=== PATIENT | female | born 1980 | race Asian ===

== ENCOUNTER 2020-04-30 17:30 | Emergency (ER) | payer BC, SELFPAY ==
--- NOTE | ~2020-04-30 | CT_ITS ---
EXAMINATION: CT brain wo con DATE: 04/30/2020 20:20 INDICATION: Headache. Transient alteration of awareness. TECHNIQUE: Computed tomography (CT) of the head was performed without intravenous contrast. The mA wa s adjusted according to patient size. Iterative reconstruction technique was employed. The dose-lengt h product was 605.33 mGy-cm. COMPARISON: None FINDINGS: There is no intracranial hemorrhage, acute infarction, or abnormal intracranial mass lesion . The ventricles are normal in size. The paranasal sinuses are clear. The mastoid air cells are jamshid l. IMPRESSION: 1. Normal brain. Reviewed, dictated and finalized at location A. CTOR SPEECH AND HEARING IMPRESSION: 1. Normal brain.
[2020-04-30 17:45] VITALS: BP 127/77; PULSE 93; RESP 16; TEMP 35.8; O2SAT 100
[2020-04-30 19:49] LABS: Basophils Absolute Auto 0.1 K/mm3 (0.0-0.1); Basophils Percent Auto 0.9 % (0.2-1.2); Eosinophils Absolute Auto 0.6 K/mm3 (0-0.3); Eosinophils Percent Auto 6.3 % (0-4.4); Hematocrit 45.2 % (37.0-47.0); Hemoglobin 15.4 g/dL (12.0-15.0); Immature Granulocyte Absolute 0.04 K/mm3 (0.00-0.031); Immature Granulocyte Percent A 0.4 % (0-0.5); Lymphocytes Absolute Auto 3.47 K/mm3 (0.9-3.2); Lymphocytes Percent Auto 34.4 % (18.3-44.2); Mean Corpuscular HGB Conc 34.1 g/dl (32-36); Mean Corpuscular Hemoglobin 31.2 pg (26-34); Mean Corpuscular Volume 91.5 fl (80-100); Mean Platelet Volume 9.1 fl (7.4-10.4); Monocytes Absolute Auto 0.7 K/mm3 (0.1-0.6); Monocytes Percent Auto 7.2 % (2.6-8.5); Neutrophils Absolute Auto 5.1 K/mm3 (1.3-6.7); Neutrophils Percent Auto 50.8 % (45.5-73.1); Platelet Count Result 288 k/mm3 (150-375); Red Blood Count 4.94 M/mm3 (4.2-5.4); White Blood Count 10.1 K/mm3 (4.5-10.0)
[2020-04-30 19:52] LABS: Add Urine Microscopic? YES; Appearance Urine Clear (Clear); Bilirubin Urine Negative (Negative); Blood Urine Negative (Negative); Color Urine Yellow (Yellow); Glucose Urine UA Negative (Negative); Ketones Urine Negative (Negative); Leukocyte Esterase Ur Negative LEU/UL (Negative); Mucus Urine Rare /lpf; Nitrate Urine Negative (Negative); Protein Urine Negative (Negative); RBC Urine 0-2 /hpf (0-2); Specific Grav Ur 1.017 (1.001-1.035); Squamous Epithelial Cell Urine Rare /hpf (Few); WBC Urine 0-3 /hpf
[2020-04-30 20:00] LABS: Ethanol < 10 mg/dL (<10)
[2020-04-30 20:01] LABS: Alanine Aminotransferase 20 U/L (4-35); Albumin Level 4.9 g/dL (3.5-5.1); Alkaline Phosphatase 59 U/L (38-126); Anion Gap 9 mmol/L (8-16); Aspartate Amino Transferase 26 U/L (14-36); Bilirubin,Total 0.3 mg/dL (0.2-1.3); Blood Urea Nitrogen 12 mg/dL (7-17); Calcium 9.5 mg/dL (8.4-10.2); Carbon Dioxide 32 mmol/L (22-30); Chloride 103 mmol/L (98-107); Estimated CRCL calculation 74 ml/min; Estimated Glomerular Filt Rate > 60; Glucose 79 mg/dL (65-105); Potassium 4.1 mmol/L (3.4-5.0); Sodium 144 mmol/L (137-145)
[2020-04-30 20:05] LABS: Amphetamine Screen Urine Negative (Negative); Barbiturate Screen Urine Negative (Negative); Benzodiazepines Screen Urine Negative (Negative); Cannabinoid Screen Urine Negative (Negative); Cocaine Screen Urine Negative (Negative); Methadone Screen Urine Negative (Negative); Opiate Screen Urine Negative (Negative); Phencyclidine Screen Urine Negative (Negative)
[2020-04-30] MEDS: ACETAMINOPHEN 500 MG TABLET 1000 MG PO (20:20)
[2020-04-30] MEDS: KETOROLAC (*BKC) 60 MG/2 ML VIAL IM (20:21)
--- NOTE | 2020-04-30 20:56 | ED.GENADULT ---
HPI - General Adult General Chief complaint: Unspecified Stated complaint: having out of body experiences Time Seen by Provider: 04/30/20 18:45 Source: patient Mode of arrival: ambulatory Limitations: no limitations History of Present Illness HPI narrative: This is a 39 year old female that presents to the ER for transient alteration in awareness. Reports over the last couple of weeks she has been having odd sensations. Reports she has episodes that last briefly (seconds) where she feels out of her body. Reports she feels like she is in a tunnel. Reports nausea during the episodes. Reports they have been happening daily the last couple of days which concerned her and prompted her to be seen. Reports a headache today as well and that she has been having headaches which she contributed to being dehydrated possibly. Denies fever, vision changes, vomiting, dizziness, chest pain, shortness of breath, numbness, or weakness. Related Data Home Medications Medication Instructions Recorded Confirmed dextroamphetamine-amphetamine 10 mg PO BID 04/30/20 [Adderall] Allergies Allergy/AdvReac Type Severity Reaction Status Date / Time No Known Allergies Allergy Verified 04/30/20 18:09 Review of Systems Review of Systems: Narrative: CONSTITUTIONAL: Denies fever EYES: Denies visual changes CARDIOVASCULAR: Denies chest pain RESPIRATORY: Denies dyspnea. GASTROINTESTINAL: Denies vomiting NEUROLOGIC: Reports headache. Denies numbness, or weakness. All systems reviewed & are unremarkable except as noted in HPI and below PMFSH Past Medical History Medical History (Updated 04/30/20 @ 21:09 by Kaylan Parikh PA-C) History of ADHD History of SCC (squamous cell carcinoma) of skin Social History Social History (Updated 04/30/20 @ 21:01 by Kaylan Parikh PA-C) Substance use: never Gender identity (if verbalized by the patient): Female Exam Narrative: Exam Narrative: GENERAL: Well-appearing, well-nourished, and in no acute distress. HEAD: Normocephalic, atraumatic. EYES: PERRLA and EOMI. ENT: Nares clear, no rhinorrhea or epistaxis. Mucous membranes moist. Oropharynx without tonsillar hypertrophy exudate or other lesions. Bilateral TMs pearly maldonado non-bulging NECK: Supple. No adenopathy or masses. No carotid bruits or JVD CHEST: Clear to auscultation. No respiratory distress. No wheezes rales or rhonchi HEART: Regular rate and rhythm. No murmur heard. Normal peripheral pulses. EXTREMITIES: Normal range of motion. No edema. Strength equal in bilateral upper extremities (5/5) SKIN: Warm, dry, no rash. NEURO: No focal deficits. Alert and oriented x3. Cranial nerves II through XII grossly intact PSYCH: Normal mood and affect Course Vital Signs Vital signs: Vital Signs Temperature 96.5 F L 04/30/20 17:45 Pulse Rate 93 04/30/20 17:45 Respiratory Rate 16 04/30/20 17:45 Blood Pressure 127/77 04/30/20 17:45 Pulse Oximetry 100 04/30/20 17:45 Temperature 96.5 F L 04/30/20 17:45 Pulse Rate 93 04/30/20 17:45 Respiratory Rate 16 04/30/20 17:45 Blood Pressure 127/77 04/30/20 17:45 Pulse Oximetry 100 04/30/20 17:45 Medical Decision Making MDM Narrative Medical decision making narrative: Patient presents to the emergency department for headaches and reports of transient alteration in awareness. She is afebrile and nontoxic-appearing. She is neurologically intact. CBC and metabolic panel without concerning findings. CT scan of the brain is normal. UA without evidence of infection. Bedside test is negative. Patient updated on case findings. She is stable and felt appropriate for further outpatient evaluation. She is to follow up with primary care doctor. She was given warnings to return to the ER Vital Signs Vital Signs: Vital Signs Temperature 96.5 F L 04/30/20 17:45 Pulse Rate 93 04/30/20 17:45 Respiratory Rate 16 04/30/20 17:45 Blood Pressure 127/77 04/30/20 17:45 P
[2020-04-30 21:33] VITALS: BP 136/88; PULSE 84; RESP 18; O2SAT 98
== END 2020-04-30 21:34 | disposition home or self-care (01) ==
PROVIDERS: Physician Assistant; Emergency Provider Emergency Medicine
DX: R40.4 Transient alteration of awareness (principal); R51.9 Headache, unspecified; F90.9 Attention-deficit hyperactivity disorder, unspecified type; Z85.828 Personal history of other malignant neoplasm of skin
CPT/HCPCS: 36415; 70450; 80053; 80307; 81001; 81025; 85025; 96372; 99284; A9270; J1885

== ENCOUNTER 2021-01-11 13:42 | Observation (INO) | payer BC, SELFPAY ==
--- NOTE | ~2021-01-11 | CT_ITS ---
EXAMINATION: CT abdomen pelvis w con EXAM DATE: 01/11/2021 14:57 INDICATION: Generalized abdominal pain. TECHNIQUE: Spiral CT of the abdomen and pelvis was performed following intravenous injection of 100 m L Omnipaque 350. Axial, coronal and sagittal images of the abdomen and pelvis were reviewed. The do se-length product (DLP) for this examination was 300.98 mGy-cm. The exposure was tailored according to patient size (auto mA exposure control), and iterative reconstruction (ASIR) was used as additiona l dose reduction technique. There is no prior study for comparison. FINDINGS: The liver, spleen, adrenal glands and pancreas are unremarkable. Gallbladder is unremarkab le. No biliary obstruction. Portal and splenic veins are patent. Kidneys enhance symmetrically. T here is no hydronephrosis. The uterus is unremarkable. The bladder is unremarkable. There is no retroperitoneal or pelvic lymphadenopathy. The appendix is dilated, with edematous origin and fluid-filled body and tail, measuring up to 10 mm in diameter (see axial images 122-135). Mild inflammation at the cecal base. No perforation. The sto mach and small bowel are unremarkable. There is expected amount of colonic stool. No free intraper itoneal gas. The heart is normal in size. There are no pericardial or pleural effusions. The lung bases are unremarkable. The bones are unremarkable. IMPRESSION: 1. Acute uncomplicated appendicitis. I discussed appendicitis with Maximino Bartholomew PA-C at 01/11/2021 15:04 CDT. 1. Reviewed, dictated and finalized at location .
[2021-01-11 13:48] VITALS: BP 112/81; PULSE 90; RESP 18; TEMP 36.7; O2SAT 99
[2021-01-11 14:07] LABS: Basophils Absolute Auto 0.1 K/mm3 (0.0-0.1); Basophils Percent Auto 0.6 % (0.2-1.2); Eosinophils Absolute Auto 0.8 K/mm3 (0-0.3); Eosinophils Percent Auto 6.4 % (0-4.4); Hematocrit 45.3 % (37.0-47.0); Immature Granulocyte Absolute 0.03 K/mm3 (0.00-0.031); Immature Granulocyte Percent A 0.2 % (0-0.5); Lymphocytes Absolute Auto 2.58 K/mm3 (0.9-3.2); Lymphocytes Percent Auto 20.8 % (18.3-44.2); Mean Corpuscular HGB Conc 33.1 g/dl (32-36); Mean Corpuscular Hemoglobin 30.7 pg (26-34); Mean Corpuscular Volume 92.6 fl (80-100); Mean Platelet Volume 9.6 fl (7.4-10.4); Monocytes Absolute Auto 1.1 K/mm3 (0.1-0.6); Monocytes Percent Auto 8.7 % (2.6-8.5); Neutrophils Absolute Auto 7.9 K/mm3 (1.3-6.7); Neutrophils Percent Auto 63.3 % (45.5-73.1); Platelet Count Result 258 k/mm3 (150-375); Red Blood Count 4.89 M/mm3 (4.2-5.4); White Blood Count 12.4 K/mm3 (4.5-10.0)
[2021-01-11 14:15] LABS: Add Urine Microscopic? YES; Appearance Urine Clear (Clear); Bilirubin Urine Negative (Negative); Blood Urine Negative (Negative); Color Urine Yellow (Yellow); Glucose Urine UA Negative (Negative); Ketones Urine Negative (Negative); Leukocyte Esterase Ur Negative LEU/UL (Negative); Mucus Urine Moderate /lpf; Nitrate Urine Negative (Negative); Protein Urine 1+ mg/dL (Negative); RBC Urine 0-2 /hpf (0-2); Specific Grav Ur 1.025 (1.001-1.035); Squamous Epithelial Cell Urine Occasional /hpf (Few); WBC Urine 0-3 /hpf
[2021-01-11] MEDS: SODIUM CHLORIDE 0.9% IV 1,000 ML 999 ML IV CONT (14:18)
[2021-01-11] MEDS: PANTOPRAZOLE SODIUM IV 40 MG VIAL IV PUSH (14:19)
[2021-01-11 14:22] LABS: Alanine Aminotransferase 21 U/L (4-35); Albumin Level 4.4 g/dL (3.5-5.1); Alkaline Phosphatase 51 U/L (38-126); Anion Gap 6 mmol/L (8-16); Aspartate Amino Transferase 27 U/L (14-36); Bilirubin,Total 0.6 mg/dL (0.2-1.3); Blood Urea Nitrogen 8 mg/dL (7-17); Calcium 9.2 mg/dL (8.4-10.2); Carbon Dioxide 28 mmol/L (22-30); Chloride 105 mmol/L (98-107); Estimated CRCL calculation 72 ml/min; Estimated Glomerular Filt Rate > 60; Glucose 82 mg/dL (65-110); Lipase 117 U/L (23-300); Sodium 139 mmol/L (137-145)
--- NOTE | 2021-01-11 15:32 | ED.GENADULT ---
HPI - General Adult General Chief complaint: Abdominal Pain Stated complaint: Abd Pain Time Seen by Provider: 01/11/21 13:53 Source: patient, family and RN notes reviewed Mode of arrival: ambulatory Limitations: no limitations History of Present Illness HPI narrative: Patient is a 40-year-old female who presents to emergency department for evaluation of abdominal pain that began yesterday patient notes she began to have generalized belly pain in the upper abdomen with nausea attempted some [id number] medications with no improvement denies similar occurrence in the past on arrival appears uncomfortable but not distressed. Related Data Home Medications Medication Instructions Recorded Confirmed dextroamphetamine-amphetamine 10 mg PO BID 01/11/21 [Adderall] Allergies Allergy/AdvReac Type Severity Reaction Status Date / Time No Known Allergies Allergy Verified 01/11/21 13:58 Review of Systems Review of Systems: All systems reviewed & are unremarkable except as noted in HPI and below PMFSH Past Medical History Medical History ADHD (attention deficit hyperactivity disorder) Frequent headaches History of SCC (squamous cell carcinoma) of skin Surgical History Surgical History No history of previous surgery Social History Social History Social History: . Lives with , 2 children and her [id number]. She works full-time as a construction carpenters helper. Moved here from [place], [place] 2019. Smoking status: Never smoker Substance use: never Gender identity (if verbalized by the patient): Female Exam Narrative: Exam Narrative: GENERAL: Ill-appearing, well-nourished, and in no acute distress. HEAD: Normocephalic, atraumatic. EYES: PERRLA and EOMI. ENT: Nares clear, no rhinorrhea or epistaxis. Mucous membranes moist. CHEST: Clear to auscultation. No respiratory distress. No wheezes rales or rhonchi HEART: Regular rate and rhythm. No murmur heard. Normal peripheral pulses. ABDOMEN: Soft, tenderness in the upper quadrants of the abdomen, nondistended, normal active bowel sounds. EXTREMITIES: Normal range of motion. No edema. SKIN: Warm, dry, no rash. NEURO: No focal deficits. Alert and oriented x3. PSYCH: Normal mood and affect. Course Course Emergency Course: Patient was evaluated for abdominal pain of 1 day duration found to have acute appendicitis discussion was made with general surgery has agreed to accept the patient would like Zosyn to be given for antibiotics with plan surgery for tomorrow Consultations Consultation #1: Spoke with general surgeon Dr. Sepulveda who is agreed to accept the patient, would like patient to be admitted to his service with Zosyn for antibiotics Date: 01/11/21 Time: 15:44 Vital Signs Vital signs: Vital Signs Temperature 98.1 F 01/11/21 13:48 Pulse Rate 90 01/11/21 13:48 Respiratory Rate 18 01/11/21 13:48 Blood Pressure 112/81 01/11/21 13:48 Pulse Oximetry 99 01/11/21 13:48 Temperature 98.1 F 01/11/21 13:48 Pulse Rate 90 01/11/21 13:48 Respiratory Rate 18 01/11/21 13:48 Blood Pressure 112/81 01/11/21 13:48 Pulse Oximetry 99 01/11/21 13:48 Medical Decision Making MDM Narrative Medical decision making narrative: Patient afebrile nontoxic-appearing no distress will be admitted to the hospital for planned surgery tomorrow hemodynamically stable ABCs and vital signs intact hydrated and given antibiotics in the emergency department Vital Signs Vital Signs: Vital Signs Temperature 98.1 F 01/11/21 13:48 Pulse Rate 90 01/11/21 13:48 Respiratory Rate 18 01/11/21 13:48 Blood Pressure 112/81 01/11/21 13:48 Pulse Oximetry 99 01/11/21 13:48 Temperature 98.1 F 01/11/21 13:48 Pulse Rate 90 01/11/21 13:48 Respiratory Rate
[2021-01-11 16:51] VITALS: BP 118/82; PULSE 89; RESP 18; TEMP 35.9; O2SAT 100
[2021-01-11 17:00] VITALS: BMI 25.6
--- NOTE | 2021-01-11 17:00 | PC.NURSE ---
This patient, Carine Campo, was admitted to 2 Medical Room 261-01. Patient/family oriented to hospital policies and general routines including ID bracelet, bed and alarms, visiting hours, pain management, procedures, bathroom and other care routines, personal items, smoking policy, room service/diet, and visiting hours. Information on how to activate the Rapid Response Team has been discussed. Patient/Family are encouraged to report perceived risks to care and to ask questions if they do not understand what they are told or what they should do.
--- NOTE | 2021-01-11 17:02 | PM.IMHP ---
H&P: HPI History of Present Illness Date/Time: 01/11/21 17:02 Chief Complaint: right lower quadrant abdominal pain Narrative: patient is a 40-year-old woman who yesterday started having back and upper abdominal pain. The pain was severe and persistent. She came to the emergency room today and the pain moved to the right lower quadrant. Evaluation in the emergency room showed tenderness with guarding in the right lower quadrant. [place] [address] scan showed acute appendicitis. She has been started on IV antibiotics and is admitted now for treatment. Review of Systems Review of Systems: All systems reviewed & are unremarkable except as noted in HPI and below Constitutional: Constitutional: Denies chills and Denies fever(s) Cardiovascular: Cardiovascular: Denies chest pain, Denies diaphoresis, Denies dyspnea and Denies paroxysmal nocturnal dyspnea Respiratory: Respiratory: Denies chest congestion, Denies cough and Denies dyspnea Gastrointestinal: Gastrointestinal: Reports as per HPI, Reports abdominal pain, Denies heartburn, Denies diarrhea, Reports nausea and Denies vomiting Integumentary/Breasts: Skin/Breast: Denies lesions and Denies rash PMFSH Past Medical History Medical History ADHD (attention deficit hyperactivity disorder) Frequent headaches History of SCC (squamous cell carcinoma) of skin Surgical History Surgical History No history of previous surgery Social History Social History Social History: . Lives with , 2 children and her [id number]. She works full-time as a construction stonemason. Moved here from [place], [place] 2019. Smoking status: Never smoker Substance use: never Gender identity (if verbalized by the patient): Female Meds Home Medications and Allergies Home Medications Medication Instructions Recorded Confirmed Type dextroamphetamine-amphetamine 10 mg PO BID 01/11/21 History [Adderall] Allergies Allergy/AdvReac Type Severity Reaction Status Date / Time No Known Allergies Allergy Verified 01/11/21 13:58 Vital Signs Vital Signs - 24 hr 01/11/21 13:48 01/11/21 16:51 Temperature 36.7 C 35.9 C L Pulse Rate 90 89 Respiratory Rate 18 18 Blood Pressure 112/81 118/82 Pulse Oximetry 99 100 Exam Const: General: cooperative, healthy appearing, comfortable, no acute distress, well developed, alert and awake Nutritional Appearance: well nourished Orientation/consciousness: patient oriented x3 Limitations: no limitations HENMT: Head: normocephalic and atraumatic Mouth: Yes Normal oral and palatal mucosa present Eyes: Conjunctivae: conjunctivae normal Pupils: Equal, round and reactive pupils present EOM: EOMs intact bilaterally Neck: Neck: normal visual inspection, no lymphadenopathy and nontender Resp: Effort & Inspection: normal respiratory effort Auscultation: clear to auscultation bilaterally Cardio: Rate: regular rate Rhythm: regular rhythm Heart sounds: no gallops, no murmurs and no rubs GI: Inspection: non-distended, scaphoid and no scars GI Palp: Yes Soft to palpation, Yes Tenderness to palpation present (GI) ( Right lower quadrant), Yes Guarding due to palpation present (GI), No Hepatomegaly present, No Splenomegaly present, No Hernia present and No Palpable mass present Auscultation: normal bowel sounds Skin: Lesions: no lesions Rashes: no rashes Neuro: General: no focal motor deficits and CN's II-XI intact bilaterally Cranial nerves: Yes Equal, round and reactive pupils present, Yes Bilaterally intact EOM present, Yes facial symmetry and Yes Midline tongue present Speech: normal speech Motor exam (neuro): 5/5 motor strength present throughout and Motor abnormalities not present Extrem: General: no clubbing, cyanosis
[2021-01-11] MEDS: IBUPROFEN IV 800 MG/200 ML 800 MG/200 ML BAG 400 MG IVPB (18:42)
[2021-01-11] MEDS: LACTATED RINGERS 1,000 ML 80 ML IV CONT (18:42)
[2021-01-11 22:00] VITALS: BP 111/73; PULSE 81; RESP 16; TEMP 36.2; O2SAT 99
[2021-01-11] MEDS: ENOXAPARIN 30 MG/0.3 ML SYRINGE SUB-Q (22:10)
[2021-01-11] MEDS: FAMOTIDINE 20 MG/2 ML VIAL IV PUSH (22:11)
[2021-01-11] MEDS: MORPHINE SULFATE (*CRX) 2 MG/ML INJ IV PUSH (22:12)
[2021-01-11] MEDS: ONDANSETRON INJ 4 MG/2 ML VIAL IV PUSH (22:15)
[2021-01-12] VITALS (9 sets, daily range): BP systolic 80–104; BP diastolic 45–75; PULSE 53–78; RESP 15–29; TEMP 36.1–36.6; O2SAT 97–100
[2021-01-12] MEDS: IBUPROFEN IV 800 MG/200 ML 800 MG/200 ML BAG 400 MG IVPB (01:19)
[2021-01-12 05:43] LABS: Basophils Absolute Auto 0.1 K/mm3 (0.0-0.1); Basophils Percent Auto 0.7 % (0.2-1.2); Eosinophils Absolute Auto 0.5 K/mm3 (0-0.3); Eosinophils Percent Auto 5.5 % (0-4.4); Hematocrit 35.7 % (37.0-47.0); Immature Granulocyte Absolute 0.02 K/mm3 (0.00-0.031); Immature Granulocyte Percent A 0.2 % (0-0.5); Lymphocytes Absolute Auto 2.21 K/mm3 (0.9-3.2); Lymphocytes Percent Auto 22.6 % (18.3-44.2); Mean Corpuscular HGB Conc 33.6 g/dl (32-36); Mean Corpuscular Hemoglobin 31.3 pg (26-34); Mean Corpuscular Volume 93.2 fl (80-100); Mean Platelet Volume 9.7 fl (7.4-10.4); Monocytes Absolute Auto 0.7 K/mm3 (0.1-0.6); Monocytes Percent Auto 7.3 % (2.6-8.5); Neutrophils Absolute Auto 6.2 K/mm3 (1.3-6.7); Neutrophils Percent Auto 63.7 % (45.5-73.1); Platelet Count Result 176 k/mm3 (150-375); Red Blood Count 3.83 M/mm3 (4.2-5.4); Red Cell Distribution Width 12.1 % (11.5-14.5); White Blood Count 9.8 K/mm3 (4.5-10.0)
[2021-01-12 06:00] LABS: Anion Gap 5 mmol/L (8-16); Blood Urea Nitrogen 6 mg/dL (7-17); Calcium 8.1 mg/dL (8.4-10.2); Carbon Dioxide 25 mmol/L (22-30); Chloride 106 mmol/L (98-107); Estimated CRCL calculation 72 ml/min; Estimated Glomerular Filt Rate > 60; Glucose 79 mg/dL (65-110); Potassium 3.6 mmol/L (3.4-5.0); Sodium 136 mmol/L (137-145)
--- NOTE | 2021-01-12 07:33 | PM.PNGS ---
Progress Note: A&P Assessment and Plan (1) Acute appendicitis: Code(s): K35.80 - Unspecified acute appendicitis Status: Acute Assessment and Plan: Persistent pain and discomfort. Patient prefers to go ahead with laparoscopic appendectomy this morning. I discussed briefly the procedure again. All questions were answered. She understands and agrees to go ahead. Subjective Subjective Date/Time Seen: 01/12/21 07:33 Patient reports: still having pain (Took main medicine through the night, pain about the same), no bowel movement and afebrile Review of Systems Review of Systems: All systems reviewed & are unremarkable except as noted in HPI and below Constitutional: Constitutional: Denies chills, Denies fever(s), Denies headache(s) and Denies night sweats Gastrointestinal: Gastrointestinal: Reports as per HPI, Reports abdominal pain, Denies diarrhea, Denies nausea and Denies vomiting Neurologic: Denies confusion and Denies headache(s) Exam Const: General: comfortable and no acute distress; No confusion Orientation/consciousness: patient oriented x3 and No confusion GI: Inspection: non-distended and scaphoid GI Palp: Yes Soft to palpation, Yes Tenderness to palpation present (GI) ( right lower quadrant) and Yes Guarding due to palpation present (GI) Auscultation: Hypoactive bowel sounds present Extrem: General: no calf tenderness and no edema Objective Data Vital Signs Vital Signs: Vital Signs - 24 hr 01/11/21 13:48 01/11/21 16:51 01/11/21 22:00 Temperature 36.7 C 35.9 C L 36.2 C L Pulse Rate 90 89 81 Respiratory Rate 18 18 16 Blood Pressure 112/81 118/82 111/73 Pulse Oximetry 99 100 99 01/12/21 06:00 Temperature 36.1 C L Pulse Rate 65 Respiratory Rate 16 Blood Pressure 95/59 L Pulse Oximetry 99 Intake/Output Intake/Output: Intake & Output 01/09/21 01/10/21 01/11/21 01/12/21 23:59 23:59 23:59 23:59 Intake Total 1400 450 Balance 1400 450 Meds/Results Medications: Active Medications Generic Name Dose Route Start Last Admin Trade Name Freq PRN Reason Stop Dose Admin Enoxaparin Sodium 30 mg 01/11/21 21:00 01/11/21 22:10 Enoxaparin 30 Mg/0.3 Ml Syringe SUB-Q 30 mg Q12HR IZABELLA Administration Famotidine 20 mg 01/11/21 21:00 01/11/21 22:11 Famotidine 20 Mg/2 Ml Vial IV PUSH 20 mg Q12HR IZABELLA Administration Piperacillin/Tazobactam/Dextrose 3.375 gm in 50 mls @ 100 mls/hr 01/11/21 22:00 01/12/21 06:01 Zosyn 3.375 Gm/D5w 50ml Pm IVPB Infused Q6HR IZABELLA Infusion Lactated Ringer's 1,000 mls @ 80 mls/hr 01/11/21 15:45 01/11/21 18:42 Lr - Lactated Ringers Iv IV CONT 80 mls/hr .[id number] IZABELLA Administration Ibuprofen 800 mg in 200 mls @ 400 mls/hr 01/11/21 16:59 01/12/21 01:49 Caldolor 800 Mg/200 Ml IVPB Infused Q6H PRN Infusion Pain Rated 5 or Less Morphine Sulfate 2 mg 01/11/21 16:59 01/11/21 22:12 Morphine Sulfate (*Crx) 2 Mg/Ml Inj IV PUSH 2 mg Q2H PRN Administration Pain Rated 6 or Greater Ondansetron HCl 4 mg 01/11/21 15:45 01/11/21 22:15 Ondansetron Inj 4 Mg/2 Ml Vial IV PUSH 4 mg Q4H PRN Administration Nausea Radiology Results: ITS Impressions Abdomen/Pelvis CT 01/11/21 14:59 IMPRESSION: 1. Acute uncomplicated appendicitis. I discussed appendicitis with Maximino Bartholomew PA-C at 01/11/2021 15:04 CDT. 1. Labs Labs: Laboratory Results - last 24 hr 01/11/21 01/11/21 01/11/21 13:55 13:55 13:55 WBC 12.4 H RBC 4.89 Hgb 15.0 Hct 45.3 MCV 92.6 MCH 30.7 MCHC 33.1 RDW 12.0 Plt Count 258 MPV 9.6 Immature Gran % (Auto) 0.2 Neut % (Auto) 63.3 Lymph % (Auto) 20.8 [place] % (Auto) 8.7 H Eos % (Auto) 6.4 H Baso % (Auto) 0.6 Lymph # (Auto) 2.58 [place] # (Auto) 1.1 H Eos # (Auto) 0.8 H Baso # (Auto) 0.1 Abs Immat Gran (auto) 0.03 Absolute Neuts (auto) 7.9 H Absolute Nucleated RBC 0.0 Nuc
--- NOTE | 2021-01-12 07:36 | WPDHPUPDATE1 ---
History and Physical Update Update Date/Time: 01/12/21 07:36 History and Physical has been reviewed, including an updated exam of the patient. There are NO changes in the patient's condition. Risks, benefits, and alternatives have been discussed and questions answered. Patient agrees to proceed with procedure.
--- NOTE | 2021-01-12 07:37 | WPDANESEPPF ---
Anes - Initial Pre Proc Eval Procedure: Operation Date: 01/12/21 08:00 Proposed Procedures p Laparoscopic Appendectomy - Cayetano Sepulveda MD Date/Time: 01/12/21 07:37 Surgeon: Cayetano Sepulveda MD Pre Op Diagnosis: appendicitis Patient Data Age: 40 Gender: F Height: 1.57 m Weight: 63.6 kg Last Vital Signs Temp 36.1 C L 01/12/21 06:00 Pulse 65 01/12/21 06:00 Resp 16 01/12/21 06:00 BP 95/59 L 01/12/21 06:00 Pulse Ox 99 01/12/21 06:00 Allergies Allergy/AdvReac Type Severity Reaction Status Date / Time No Known Allergies Allergy Verified 01/11/21 17:53 Home Medications Medication Instructions Recorded Confirmed Type dextroamphetamine-amphetamine 10 mg PO BID 01/11/21 01/11/21 History [Adderall] Laboratory Tests 01/11/21 01/11/21 01/11/21 13:55 13:55 13:55 WBC 12.4 K/mm3 H K/mm3 (4.5-10.0) RBC 4.89 M/mm3 M/mm3 (4.2-5.4) Hgb 15.0 g/dL g/dL (12.0-15.0) Hct 45.3 % % (37.0-47.0) MCV 92.6 fl fl (80-100) MCH 30.7 pg pg (26-34) MCHC 33.1 g/dl g/dl (32-36) RDW 12.0 % % (11.5-14.5) Plt Count 258 k/mm3 k/mm3 (150-375) MPV 9.6 fl fl (7.4-10.4) Immature Gran % (Auto) 0.2 % % (0-0.5) Neut % (Auto) 63.3 % % (45.5-73.1) Lymph % (Auto) 20.8 % % (18.3-44.2) [place] % (Auto) 8.7 % H % (2.6-8.5) Eos % (Auto) 6.4 % H % (0-4.4) Baso % (Auto) 0.6 % % (0.2-1.2) Lymph # (Auto) 2.58 K/mm3 K/mm3 (0.9-3.2) [place] # (Auto) 1.1 K/mm3 H K/mm3 (0.1-0.6) Eos # (Auto) 0.8 K/mm3 H K/mm3 (0-0.3) Baso # (Auto) 0.1 K/mm3 K/mm3 (0.0-0.1) Abs Immat Gran (auto) 0.03 K/mm3 K/mm3 (0.00-0.031) Absolute Neuts (auto) 7.9 K/mm3 H K/mm3 (1.3-6.7) Absolute Nucleated RBC 0.0 K/mm3 K/mm3 (0.0-0.012) Nucleated RBC % 0.0 % % (0.0-0.2) Sodium 139 mmol/L mmol/L (137-145) Potassium 4.0 mmol/L mmol/L (3.4-5.0) Chloride 105 mmol/L mmol/L (98-107) Carbon Dioxide 28 mmol/L mmol/L (22-30) Anion Gap 6 mmol/L L mmol/L (8-16) BUN 8 mg/dL mg/dL (7-17) Creatinine 0.70 mg/dL mg/dL (0.7-1.0) Estim Creat Clear Calc 72 ml/min ml/min Estimated GFR > 60 (59 - ) Glucose 82 mg/dL mg/dL (65-110) Calcium 9.2 mg/dL mg/dL (8.4-10.2) Total Bilirubin 0.6 mg/dL mg/dL (0.2-1.3) AST 27 U/L U/L (14-36) ALT 21 U/L U/L (4-35) Alkaline Phosphatase 51 U/L U/L (38-126) Total Protein 8.0 g/dL g/dL (6.3-8.2) Albumin 4.4 g/dL g/dL (3.5-5.1) Lipase 117 U/L U/L (23-300) Urine Color Yellow (Yellow) Urine Appearance Clear (Clear) Urine pH 6.0 (5.0-9.0) Ur Specific [place] 1.025 (1.001-1.035) Urine Protein 1+ mg/dL H mg/dL (Negative) Urine Glucose (UA) Negative mg/dL mg/dL (Negative) Urine Ketones Negative mg/dL mg/dL (Negative) Ur Blood (Man) Negative (Negative) Urine Nitrate Negative (Negative) Urine Bilirubin Negative (Negative) Urine Urobilinogen 4.0 mg/dL H mg/dL (<2.0) Leukocyte Esterase Rfl Negative NEEMA/UL NEEMA/UL (Negative) Urine RBC 0-2 /hpf /hpf (0-2) Urine WBC 0-3 /hpf /hpf Ur Squamous Epith Cells Occasional /hpf /hpf (Few) Urine Mucus Moderate /lpf H /lpf 01/12/21 01/12/21 05:01 05:02 WBC 9.8 K/mm3 K/mm3 (4.5-10.0) RBC 3.83 M/mm3 L M/mm3 (4.2-5.4) Hgb 12.0 g/dL D g/dL (12.0-15.0) Hct 35.7 % L % (37.0-47.0) MCV 93.2 fl fl (80-100) MCH 31.3 pg pg (26-34) MCHC 33.6 g/dl g/dl (32-36) RDW 12.1 % % (11.5-14.5
[2021-01-12] MEDS: LACTATED RINGERS 1,000 ML 30 ML IV CONT ×2 (07:50→08:46)
[2021-01-12] MEDS: BUPIVACAINE/EPINEPHRINE 0.5% 30 ML VIAL INFILTRATE (08:29)
--- NOTE | 2021-01-12 08:42 | P.OP_ITS ---
Procedure Note - Detailed Date of Procedure 01/12/21 Pre-op Diagnosis Acute appendicitis Post-op Diagnosis same Procedure Performed laparoscopic appendectomy Surgeon Cayetano Sepulveda MD Breast Buffer Roselyn CEJA Anesthesia general and local ( 0.5% Marcaine with epinephrine) Indications patient is a 40-year-old woman with complaints of back pain and upper abdominal pain that moved to her right lower quadrant. The pain was persistent and she was found in the emergency room to have evidence of acute appendicitis. She is taken to surgery now for laparoscopic appendectomy. Findings Acute non perforated appendicitis Description of Procedure patient was taken to surgery and induced into general anesthesia. The abdomen is prepped and draped. Trocars were placed in usual fashion using 0.5% Marcaine with epinephrine and applied Medical optical trocars. A 5 mm camera was used. The patient was placed in Trendelenburg with right side elevated. The appendix was found fairly easily. It was elevated anteriorly. Dissection was carried out in the mesoappendix. The appendiceal artery was cauterized and divided. The mesoappendix was divided and the base of the appendix was skeletonized. A Vicryl endoloop was used to ligate the appendix at its base. The appendix was then amputated just above the ligature. The appendix was placed immediately in an Endo-Catch bag. It was extricated through the left lower quadrant 10 11 trocar site. The left lower quadrant trocar was replaced. We reviewed the right lower quadrant. All areas of dissection looked good with no evidence of bleeding or other issues. I looked at both ovaries in the pelvis. They both looked satisfactory as well. We then evacuated CO2 and removed the trocar sleeves. Skin wounds were closed with subcuticular running 4 0 Monocryl skin suture. The wounds were dressed with Exofin surgical adhesive. Patient was awakened and taken to recovery in good condition. Estimated blood loss was 5 cc. Counts were correct x2. Estimated Blood Loss 5 Drains No Packing No Pathology yes ( Appendix) Complications None Condition stable Disposition PACU
--- NOTE | 2021-01-12 08:46 | PM.DS ---
DS: Admitting Diagnosis Admitting Diagnosis Admitting Diagnosis: acute appendicitis DS: Discharge Diagnosis Discharge Diagnosis (1) Acute appendicitis: Code(s): K35.80 - Unspecified acute appendicitis Status: Acute DS: Summary Hospital Course Hospital Course: patient started having upper abdominal and back pain about 2 days ago. This was persistent and eventually she came to the emergency room. The pain moved to the right lower quadrant and was persistent. She was noted to have right lower quadrant tenderness and elevated white count. CT scan showed evidence of acute appendicitis. She was started on IV antibiotics but her pain was persistent this morning with guarding in the right lower quadrant as well. She was taken to surgery on 01/12/2021. Laparoscopic appendectomy was performed. Intraoperative findings showed acute appendicitis but no evidence of rupture or other problems. The patient did well was able to be discharged after period of observation. Status at Discharge Functional status at discharge: independent ambulation Overall status at discharge: patient is progressing back to baseline Time Spent with Patient Time attestation: Total time spent providing and/or coordinating discharge services: DS: Data Data Completed and Pending Pending studies at discharge: Pending at discharge 01/12/21 08:30 Surgical [PTH] Routine Labs on day of discharge: Labs from last 24 hours 01/12/21 01/12/21 01/11/21 05:02 05:01 13:55 WBC 9.8 RBC 3.83 L Hgb 12.0 D Hct 35.7 L MCV 93.2 MCH 31.3 MCHC 33.6 RDW 12.1 Plt Count 176 MPV 9.7 Immature Gran % (Auto) 0.2 Neut % (Auto) 63.7 Lymph % (Auto) 22.6 Jewell % (Auto) 7.3 Eos % (Auto) 5.5 H Baso % (Auto) 0.7 Lymph # (Auto) 2.21 Jewell # (Auto) 0.7 H Eos # (Auto) 0.5 H Baso # (Auto) 0.1 Abs Immat Gran (auto) 0.02 Absolute Neuts (auto) 6.2 Absolute Nucleated RBC 0.0 Nucleated RBC % 0.0 Sodium 136 L 139 Potassium 3.6 4.0 Chloride 106 105 Carbon Dioxide 25 28 Anion Gap 5 L 6 L BUN 6 L 8 Creatinine 0.70 0.70 Estim Creat Clear Calc 72 72 Estimated GFR > 60 > 60 Glucose 79 82 Calcium 8.1 L 9.2 Total Bilirubin 0.6 AST 27 ALT 21 Alkaline Phosphatase 51 Total Protein 8.0 Albumin 4.4 Lipase 117 Urine Color Urine Appearance Urine pH Ur Specific [place] Urine Protein Urine Glucose (UA) Urine Ketones Ur Blood (Man) Urine Nitrate Urine Bilirubin Urine Urobilinogen Leukocyte Esterase Rfl Urine RBC Urine WBC Ur Squamous Epith Cells Urine Mucus 01/11/21 01/11/21 13:55 13:55 WBC 12.4 H RBC 4.89 Hgb 15.0 Hct 45.3 MCV 92.6 MCH 30.7 MCHC 33.1 RDW 12.0 Plt Count 258 MPV 9.6 Immature Gran % (Auto) 0.2 Neut % (Auto) 63.3 Lymph % (Auto) 20.8 Jewell % (Auto) 8.7 H Eos % (Auto) 6.4 H Baso % (Auto) 0.6 Lymph # (Auto) 2.58 Jewell # (Auto) 1.1 H Eos # (Auto) 0.8 H Baso # (Auto) 0.1 Abs Immat Gran (auto) 0.03 Absolute Neuts (auto) 7.9 H Absolute Nucleated RBC 0.0 Nucleated RBC % 0.0 Sodium Potassium Chloride Carbon Dioxide Anion Gap BUN Creatinine Estim Creat Clear Calc Estimated GFR Glucose Calcium Total Bilirubin AST ALT Alkaline Phosphatase Total Protein Albumin Lipase Urine Color Yellow Urine Appearance Clear Urine pH 6.0 Ur Specific [place] 1.025 Urine Protein 1+ H Urine Glucose (UA) Negative Urine Ketones Negative Ur Blood (Man) Negative Urine Nitrate Negative Urine Bilirubin Negative Urine Urobilinogen 4.0 H Leukocyte Esterase Rfl Negative Urine RBC 0-2 Urine WBC 0-3 Ur Squamous Epith Cells Occasional Urine Mucus Moderate H Discharge Plan Discharge Attending physician on discharge: Cayetano Sepulveda Discharging Clinician: Cayetano Sepulveda
== END 2021-01-12 15:40 | disposition home or self-care (01) ==
LOC: ANHED 15:45 → ANH2MED 15:58
PROVIDERS: Emergency Medicine; Emergency Medicine Emergency Medical Services; Admitting Provider Surgery; Emergency Provider Emergency Medicine; PCP Family Medicine; Visit Provider Surgery
PROC: 0DTJ4ZZ Resection of Appendix, Percutaneous Endoscopic Approach (ICD-10-PCS; CPT 44970; principal; 2021-01-12 08:00)
DX: K35.890 Other acute appendicitis without perforation or gangrene (principal); F90.9 Attention-deficit hyperactivity disorder, unspecified type
CPT/HCPCS: 44970; 36415; 74177; 80048; 80053; 81001; 81025; 83690; 85025; 88304; 96361; 96365; 96367; 96372; 96375; 99285; C9113; G0378; J0131; J1650; J1741; J2250; J2270; J2405; J2543; J3010; J7030; J7120; Q9967

== ENCOUNTER 2021-07-03 00:06 | Day surgery (SDC) | payer BC, SELFPAY ==
[2021-06-26 14:33] VITALS: BMI 24.2
--- NOTE | 2021-06-26 14:34 | SUR.PREOP ---
Report to the Outpatient Waiting Room, entrance under the green pavilion located off [facility], at time _0600 on date _07/03/20 . OR Time: __0730 . - You and your visitor will be asked a series of questions to screen for COVID 19 for your protection. - A mask is required within the hospital. Preoperative COVID Testing Requirements: No COVID Test needed if: (proof is required; if not received patient will have Rapid Test prior to entry) - Patient has received COVID Vaccine at least 14 days prior to procedure date or - Patient has positive COVID test result within last 90 days of surgery date. COVID Test needed if above criteria is not met If not COVID vaccinated a COVID test must be conducted within 72 hours of surgery and patient is asked to isolate self from time of testing until procedure. You will go to the [facility] for your COVID testing. The [email or web address] site is located at the corner of [address] [facility]. You will only be called if COVID results are positive and your surgeon may reschedule your elective surgery date. Patients may have clear liquids (water, carbonated beverages, clear teas, apple juice) until 3 hours prior to surgery with a maximum of 20 ounces. - No food from midnight until time of surgery - Infants may have breast milk until 4 hours before surgery, formula 6 hours prior to surgery. - Children will be allowed to drink immediately following surgery. If applicable, please bring a bottle or sippy cup to assist with drinking. Juice, water, soda, and popsicles are readily available. For infants on formula, please bring formula the day of surgery. Pacifiers are allowed. Take the following medications with a SIP of water the morning of surgery: __adderal Medications to discontinue per physician _vitamin supplements Date to take last dose__06/30/20 Please no make-up, nail romansh, hairspray, perfume, deodorant, or body powder the day of surgery. No jewelry (including any body piercings) or valuables the day of surgery, leave them at home. Please take a shower or bath the night before, or the morning of, surgery with an antibacterial soap. Wear comfortable, loose fitting clothing. Children are encouraged to wear pajamas. - Jewelry must be removed prior to entering the operating room. Rings and piercings that are not removed may be cut off. - The hospital will not accept responsibility for valuables. - Please leave all valuables, including medications, at home the day of surgery. If you are going home after surgery, a licensed straddle bug driver must drive you home. - NO public transportation without another adult. - We recommend that an adult stay with you for 24 hours following discharge. - We also recommend that you do not drive, make important decision, drink alcoholic beverages, or take any drugs that were not prescribed by your health care provider for at least 24 hours after your discharge time. For Pediatric surgeries, we recommend two adults accompany the child home (only one inside the building at this time). Follow any additional instructions given to you from your surgeon. Telephone instructions given to _cecy dia and asked if any additional questions and then verbalized understanding. Patient advised to call surgeon office or pre surgery nurse liaison [phone] if any additional questions.
[2021-07-03] MEDS: ACETAMINOPHEN 500 MG TABLET 1000 MG PO (07:10)
[2021-07-03] MEDS: LACTATED RINGERS 1,000 ML 30 ML IV CONT (07:12)
--- NOTE | 2021-07-03 07:16 | WPDANESEPPF ---
Anes - Initial Pre Proc Eval Procedure: Operation Date: 07/03/21 08:30 Proposed Procedures p Loop Electrical Excision Procedure - Hunter Gould MD Date/Time: 07/03/21 07:16 Surgeon: Hunter Gould MD Pre Op Diagnosis: MERLE 3 Patient Data Age: 40 Gender: F Height: 1.57 m Weight: 60 kg Allergies Allergy/AdvReac Type Severity Reaction Status Date / Time No Known Allergies Allergy Verified 07/03/21 07:16 Home Medications Medication Instructions Recorded Confirmed Type norethindrone (contraceptive) 0.35 0.35 mg PO DAILY #84 tablet 04/11/21 06/26/21 Rx mg tablet dextroamphetamine-amphetamine 10 10 mg PO BID #90 tablet 06/10/21 06/26/21 Rx mg tablet sgjzviuykiiz-faj-ydvc-FA-vit K 1 tablet PO DAILY 06/26/21 06/26/21 History [Adults Multivitamin] omega-3 fatty acids [[place] 3] 1,000 mg PO DAILY 06/26/21 06/26/21 History vitamin B complex [B 1 tablet PO DAILY 06/26/21 06/26/21 History Complex-Vitamin B12] zinc 1 tablet PO DAILY 06/26/21 06/26/21 History Patient hx anesthesia problems: none Family hx anesthesia problems: none Results Review: All pre-operative results and documents have been reviewed as part of the pre-operative evaluation. [facility] Past Medical History Medical History Acute appendicitis ADHD (attention deficit hyperactivity disorder) Frequent headaches History of SCC (squamous cell carcinoma) of skin Surgical History Surgical History History of laparoscopic appendectomy Status post Mohs surgery Family History Family History Grandparent History of blood clots Grandparent Congestive heart failure Father Hypertension Social History Social History Social History: . Lives with , 2 children and her [id number]. She works full-time as a commercial construction superintendent. Moved here from [place], [place] 2019. Smoking status: Never smoker Alcohol intake: unknown Substance use: never Substance use type: does not use Living arrangements: with family Gender identity (if verbalized by the patient): Female Sexual Orientation (if Verbalized by the Patient): Straight or Heterosexual Spiritual care concerns: No Anes - Eval Final PreProcedure Day of Procedure 07/03/21 07:16 Patient weight: normal Heart: regular rate and rhythm Lungs: clear to auscultation and normal air movement Airway: Mallampati scale class II Neurological: alert and oriented Last oral intake: >/= 8 hours ASA classification: II Emergent: no Anesthetic plan: proceed Anesthesia type and monitoring: general GIVS and standard monitoring Results Review: All pre-operative results and documents have been reviewed as part of the pre-operative evaluation. Informed Consent: The patient's anesthetic plan and its attendant risks and benefits were discussed with the patient/family/POA. Questions were solicited and answers provided to the satisfaction of the patient/family/POA.
[2021-07-03 07:18] VITALS: BP 109/74; PULSE 87; RESP 16; TEMP 37.3; O2SAT 100
--- NOTE | 2021-07-03 07:50 | PM.IMHP ---
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 ECC negative for dysplasia. She has been recommended for LEEP procedure. Risk benefits of procedure and risk of not getting the severe dysplasia removed discussed. She agrees to LEEP procedure. Chief Complaint: CIN3 Review of Systems Review of Systems: All systems reviewed & are unremarkable except as noted in HPI and below Cardiovascular: Cardiovascular: Reports no additional cardiovascular complaints, Denies chest pain and Denies dyspnea Respiratory: Respiratory: Reports no additional respiratory complaints and Denies dyspnea Gastrointestinal: Gastrointestinal: Reports no additional gastrointestinal complaints Integumentary/Breasts: Skin/Breast: Reports system reviewed and no additional complaints, except as docu Neurologic: Reports system reviewed and no additional complaints, except as documented Psychiatric: Psychiatric: Reports no additional psychiatric complaints PMFSH Past Medical History Medical History Acute appendicitis ADHD (attention deficit hyperactivity disorder) Frequent headaches History of SCC (squamous cell carcinoma) of skin Surgical History Surgical History History of laparoscopic appendectomy Status post Mohs surgery Family History Family History Grandparent History of blood clots Grandparent Congestive heart failure Father Hypertension Social History Social History Social History: . Lives with , 2 children and her [id number]. She works full-time as a construction project mgr. Moved here from [place], [place] 2019. Smoking status: Never smoker Alcohol intake: unknown Substance use: never Substance use type: does not use Living arrangements: with family Gender identity (if verbalized by the patient): Female Sexual Orientation (if Verbalized by the Patient): Straight or Heterosexual Spiritual care concerns: No Meds Home Medications and Allergies Home Medications Medication Instructions Recorded Confirmed Type norethindrone (contraceptive) 0.35 0.35 mg PO DAILY #84 tablet 04/11/21 07/03/21 Rx mg tablet dextroamphetamine-amphetamine 10 10 mg PO BID #90 tablet 06/10/21 07/03/21 Rx mg tablet esmxnnwwzyni-rpd-kewe-FA-vit K 1 tablet PO DAILY 06/26/21 07/03/21 History [Adults Multivitamin] omega-3 fatty acids [[place] 3] 1,000 mg PO DAILY 06/26/21 07/03/21 History vitamin B complex [B 1 tablet PO DAILY 06/26/21 07/03/21 History Complex-Vitamin B12] zinc 1 tablet PO DAILY 06/26/21 07/03/21 History Allergies Allergy/AdvReac Type Severity Reaction Status Date / Time No Known Allergies Allergy Verified 07/03/21 07:16 Vital Signs Vital Signs - 24 hr 07/03/21 07:18 Temperature 99.2 F Pulse Rate 87 Respiratory Rate 16 Blood Pressure 109/74 Pulse Oximetry 100 Exam Const: Orientation/consciousness: oriented to person and oriented to place HENMT: Head: normal to inspection Eyes: General: appearance normal, both eyes and all related structures Resp: Effort & Inspection: normal respiratory effort Auscultation: clear to auscultation bilaterally Cardio: Rate: regular rate Rhythm: regular rhythm GI: Inspection: normal to inspection : External Female Exam: normal external appearance Speculum Exam - Vagina: normal appearance of the vagina Speculum Exam - Cervix: normal appearance of the cervix Bimanual exam- vagina & uterus: normal bimanual exam Neuro: General: oriented to person and oriented to place Cognition (Neuro): normal cognition Extrem: General: normal to inspection Psyc
--- NOTE | 2021-07-03 08:07 | WPDHPUPDATE1 ---
History and Physical Update Update Date/Time: 07/03/21 08:07 History and Physical has been reviewed, including an updated exam of the patient. There are NO changes in the patient's condition. Risks, benefits, and alternatives have been discussed and questions answered. Patient agrees to proceed with procedure.
[2021-07-03] MEDS: ceFAZolin 2 GM/D5W 50 ML 2 GM/50 ML BAG IVPB (08:53)
[2021-07-03] MEDS: LIDO 1%/EPINEPHRINE 1:100,000 50 ML VIAL 10 ML INFILTRATE (09:03)
[2021-07-03 09:29] VITALS: BP 100/62; PULSE 82; RESP 12; O2SAT 100
--- NOTE | 2021-07-03 09:46 | W.PM.PROC2 ---
Procedure Note - Detailed Date of Procedure 07/03/21 Pre-op Diagnosis MERLE 3 Post-op Diagnosis same Procedure Performed Loop electrosurgical excision procedure Surgeon Hunter Gould MD Anesthesia MAC and local Indications CIN3 Findings Hypopigmentation from Description of Procedure The patient was taken to the OR where IV sedation was initiated. She was then prepped and draped in the usual sterile fashion and placed in the dorsal lithotomy position. At this time, the Graves speculum was placed in the vagina. Lugol?s solution was painted along the entire cervix and vaginal wall. Areas of non-uptake were noted to be around the entire squamocolumnar junction. Approximately 10mL of 1% lidocaine plain was injected circumferentially near cervicovaginal junction. The large loop electrode was used to remove the anterior or top portion of the cervix and a separate posterior specimen enclosing the hypopigmented areas and was excised and sent to pathology. The bed of the excised cervical tissue along the cervix was cauterized using the roller ball. Monsel's paste was applied. Hemostasis was noted. All instruments were removed from vagina at this point. The patient tolerated the procedure well without complication and was taken to the recovery room in stable condition. Sponge count correct. Estimated Blood Loss 5 Drains No Packing No Pathology yes (LEEP specimen anterior specimen marked at 12, post specimen marked at 6) Complications No immediate complications Condition stable Disposition same day
[2021-07-03 09:55] VITALS: BP 96/56; PULSE 83; RESP 20
[2021-07-03 10:25] VITALS: BP 109/79; PULSE 70; RESP 20
[2021-07-03 10:55] VITALS: BP 108/69; PULSE 72; RESP 20
== END 2021-07-03 11:18 | disposition home or self-care (01) ==
PROVIDERS: PCP Family Medicine; Visit Provider Obstetrics & Gynecology
PROC: 0UBC7ZZ Excision of Cervix, Via Natural or Artificial Opening (ICD-10-PCS; CPT 57522; principal; 2021-07-03 08:30)
DX: N87.1 Moderate cervical dysplasia (principal); N72 Inflammatory disease of cervix uteri; F90.9 Attention-deficit hyperactivity disorder, unspecified type
CPT/HCPCS: 57522; 88305; A9270; J0690; J2250; J2270; J2405; J2704; J7120

== ENCOUNTER 2022-01-18 10:37 | Outpatient (CLI) | payer BC, SELFPAY ==
--- NOTE | ~2022-01-18 | MM_ITS ---
EXAMINATION: MM screening ameena BI w kaye HISTORY: Screening mammogram TECHNIQUE: Craniocaudal and mediolateral oblique 3-D tomosynthesis images were obtained and synthetic 2-D images were generated. CAD analysis was submitted and interpreted. COMPARISON: No prior mammogram is available for comparison at this institution. BREAST PARENCHYMAL COMPOSITION: The breasts are heterogeneously dense, which may obscure small masses .. FINDINGS: There is no evidence of suspicious mass, calcification, or architectural distortion to sugg est malignancy in either breast. There has been no suspicious interval change. IMPRESSION: 1. No mammographic evidence of malignancy. 2. Recommend routine screening mammography in one year. BI-RADS Category 1: Negative Reviewed, dictated and finalized at location A.
== END 2022-01-18 10:38 | disposition home or self-care (01) ==
LOC: ANHIMG 10:46
PROVIDERS: PCP Family Medicine; Visit Provider Obstetrics & Gynecology
DX: Z12.31 Encounter for screening mammogram for malignant neoplasm of breast (principal)
CPT/HCPCS: 77063; 77067

== ENCOUNTER 2022-04-15 08:50 | Outpatient (CLI) | payer BC, SELFPAY | END 2022-04-15 08:51 | disposition home or self-care (01) | LOC: ANHGOSHLAB 08:52 | PROVIDERS: PCP Family Medicine; Visit Provider Nurse Practitioner | DX: Z13.6 Encounter for screening for cardiovascular disorders (principal); Z13.220 Encounter for screening for lipoid disorders; E53.8 Deficiency of other specified B group vitamins; E55.9 Vitamin D deficiency, unspecified; R53.83 Other fatigue | CPT/HCPCS: 99199; 36415 ==

== ENCOUNTER 2022-08-05 15:49 | Outpatient (CLI) | payer BC, SELFPAY ==
--- NOTE | ~2022-08-05 | XR_ITS ---
EXAMINATION: XR lumbar spine 2-3V DATE: 08/05/2022 16:03 INDICATION: Low back pain TECHNIQUE: Anteroposterior and lateral views of the lumbar spine, and cone-down lateral view of the l umbosacral junction were obtained. COMPARISON: None. FINDINGS: No fracture, dislocation, or subluxation. The vertebral body heights, alignment, and interv ertebral disc spaces are normal. The paravertebral soft tissues are unremarkable. Small degenerative osteophytes project from the anterior endplates of multiple vertebral bodies. IMPRESSION: 1. Mild lumbar spondylosis without acute findings. Reviewed, dictated and finalized at location L. R [employer]
== END 2022-08-05 15:50 ==
PROVIDERS: PCP Nurse Practitioner; Visit Provider Nurse Practitioner
DX: M54.50 Low back pain, unspecified (principal); M47.896 Other spondylosis, lumbar region
CPT/HCPCS: 72100